=== PATIENT | male | born 1965 | race Caucasian/White ===

== ENCOUNTER 2020-12-26 14:39 | Emergency (ER) | payer OTHER, MEDICARE ==
[2020-12-26 16:44] LABS: HCT 47.3 % (42.0-52.0); LYMPHOCYTE 22.2 % (15-48); MCH 31.1 pg (25.0-31.0); MCHC 33.8 g/dL (32.0-36.0); MCV 91.8 fL (78.0-100.0); MONOCYTE 8.3 % (0-12); MPV 10.4 fL (6.0-9.5); NEUTROPHIL 66.3 % (41-80); NRBC 0; PLT 214 K/uL (150-400); RBC 5.15 M/uL (4.70-6.00); RDW 12.8 % (11.5-14.0); WBC 9.1 K/uL (4.0-10.5)
[2020-12-26 16:55] LABS: ALBUMIN 3.8 g/dL (3.4-5.0); BILIRUBIN - TOTAL 0.6 mg/dL (0.2-1.0); BUN/CREAT RATIO (CALC) 13.6 RATIO; CREATININE 0.88 mg/dL (0.67-1.17); POTASSIUM 4.3 mmol/L (3.5-5.1); TOTAL PROTEIN 6.8 g/dL (6.4-8.2)
[2020-12-26 17:03] LABS: INR 1.2 (0.9-1.2); PROTHROMBIN TIME 14.4 SECONDS (11.4-13.6); PTT 26.3 SECONDS (22.2-34.7)
== END 2020-12-26 21:07 | disposition home or self-care (01) ==
LOC: FER 14:39
PROVIDERS: Internal Medicine
DX: I95.1 Orthostatic hypotension (principal); J44.9 Chronic obstructive pulmonary disease, unspecified; F17.210 Nicotine dependence, cigarettes, uncomplicated; Z88.1 Allergy status to other antibiotic agents; Z88.0 Allergy status to penicillin
CPT/HCPCS: 36415; 71045; 80053; 84484; 85025; 85610; 85730; 93005; J7030